=== PATIENT | female | born 1965 | race Caucasian/White ===

== ENCOUNTER 2016-10-12 18:32 | Emergency (ER) | payer SELFPAY ==
[2016-10-12 18:40] VITALS: BP 141/81
--- NOTE | 2016-10-12 18:53 | ERNOTE ---
ENT HPI Time Seen by Provider: 10/12/16 18:33 Source: patient Exam Limitations: no limitations - Immun/Allergies/Home Medications Immunizations: IMMUNIZATION HX Immunizations Up to Date Yes History of Influenza Vaccine Yes Hx Pneumococcal Vaccination No Allergies/Adverse Reactions: Allergies Allergy/AdvReac Type Severity Reaction Status Date / Time sulindac Allergy Verified 04/19/15 18:36 Home Medications: HOME MEDICATIONS Atorvastatin Calcium [Lipitor] 10 mg PO DAILY 10/01/14 [Last Taken Unknown] Cyclobenzaprine HCl [Flexeril] 10 mg PO TID PRN #30 tab 04/19/15 [Last Taken Unknown] Amoxicillin 500 mg PO TID #30 capsule 10/12/16 [Last Taken Unknown] Pseudoephedrine HCl [Sudafed] 30 mg PO TID #12 tablet 10/12/16 [Last Taken Unknown] - History of Present Illness Narrative: pt complains of pain and pressure in left ear for 24 hours. She denies having stuck anything in her left ear and has not taken meds for this condition. 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 Review of Systems - Review of Systems Constitutional: Present: no symptoms reported EYE: Present: no symptoms reported ENT: Present: See HPI Respiratory: Present: no symptoms reported Cardiology: Present: no symptoms reported Gastrointestinal/Abdominal: Present: no symptoms reported Genitourinary: Present: no symptoms reported Musculoskeletal: Present: no symptoms reported Skin: Present: no symptoms reported Neurological: Present: no symptoms reported - Patient's Past Medical History Patient History - Medical: No pertinent hx Patient History - Cardiac/Respiratory: Hyperlipidemia Patient History - Cancer: No Hx of Cancer Patient History - Surgical Procedures: Cholecystectomy, Colonoscopy, , Ear Tubes, Hysterectomy, T & A Patient History - Other: None - Social History Living Situations: home Abuse History: No History of abuse Psych History: No pertinent hx Smoking Status: Current every day smoker Patient requests Smoking Cessation Consult: No Initiate information on Smoking Cessation: No Alcohol Use: none Drug Use: none - Immunizations Immunizations Up to Date: Yes Hx Pneumococcal Vaccination: No History of Influenza Vaccine: Yes Physical Exam - Physical Exam General Appearance: Present: wd/wn, alert, no apparent distress Ears, Nose, Throat: Present: normal pharynx, other - patient has injetion and rtraction of the left tympanic membrane. her hearing is slightly decreased in left ear. no FB noted. ED Progress - Vital Signs Patient's Vital Signs:: I have reviewed the patient's vital signs. Vital Signs: Vital Signs 10/12/16 10/12/16 18:32 18:35 Temperature 36.3 C L 36.6 C Pulse Rate 98 Respiratory 16 Rate Blood Pressure 125/68 141/81 O2 Sat by Pulse 98 Oximetry - Progress/Reassessment Chief Complaint: Earache Plan - Plan Plan: pt appears to have otitis media and some eustacian tube congestion and will be treated as such Departure Clinical Impression: Otitis media Qualifiers: Otitis media type: unspecified Laterality: left Chronicity: unspecified Qualified Code(s): H66.92 - Otitis media, unspecified, left ear Eustachian tube dysfunction Qualifiers: Laterality: left Qualified Code(s): H69.82 - Other specified disorders of Eustachian tube, left ear - Departure Disposition: Home self-care Condition: Good Instructions: Otitis Media, Adult, [id number] Prescriptions: Amoxicillin 500 mg PO TID #30 capsule Pseudoephedrine HCl [Sudafed] 30 mg PO TID #12 tablet
--- OUTSIDE RECORDS SUMMARY | 2016-10-12 19:06 | XMS REPORT | Continuity of Care Document ---
:1965 Author Organization [facility] ([facility]) Address [address] [place] [address] Phone [phone] Care Team Providers Name Role Phone Bart Hines Primary Care Provider [phone] Source Comments This disclosure is being made pursuant to the Care Everywhere program, applicable federal and state laws, and may not contain all informaitonavailable regarding this patient.[facility] ([facility]) Active Allergies and Adverse Reactions Allergen Noted Date Severity Reactions Comments Adhesive Tape Urticaria (Hives),Desquamation,Blist ers Cortisone OTHER Pt. states it gave her shingles in her eyes. 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
--- OUTSIDE RECORDS SUMMARY | 2016-10-12 19:06 | XMS REPORT | Continuity of Care Document ---
:1965 Author Organization [employer]. [place] [address] Care Team Providers Name Role Phone Unavailable Primary Care Provider Unavailable Source Comments This disclosure is being made pursuant to the [employer] program and maynot contain all information available regarding this patient.bulletn. Active Allergies and Adverse Reactions Not on File Current Medications Be aware that medications may not be up to date as of this document. Alwaysverify current medications with the patient. Not on file Active Problems Not on file Social History Tobacco Use Types Packs/Day Years Used Date Never Assessed Plan of Care Health Maintenance Due Date Last Done Comments Retired-Pertussis Vaccine Adult 1983 Retired-Tetanus Vaccine Adult 1983 Pap Smear 1985 Mammogram 2004 Colonoscopy 2014 Well Adult Visit 2014 Retired-INFLUENZA VACCINE 01/12/2015 Results from Last 3 Months Not on file
== END 2016-10-12 19:02 | disposition home or self-care (01) ==
LOC: ER 18:32
DX: H66.92 Otitis media, unspecified, left ear (principal); H69.82 Other specified disorders of Eustachian tube, left ear; Z72.0 Tobacco use; E78.5 Hyperlipidemia, unspecified